=== PATIENT | female | born 2000 | race Caucasian/White ===

== ENCOUNTER → 2023-11-02 20:31 | Outpatient (REF) | payer BC, SELFPAY | LOC: MRI 3T 20:31 | PROVIDERS: ATTENDING PHYSICIAN Psychiatry & Neurology Neurology; FAMILY PHYSICIAN Internal Medicine | DX: G43.711 Chronic migraine without aura, intractable, with status migrainosus (principal) | CPT/HCPCS: 70553; A9575 ==